=== PATIENT | male | born 1955 | race African-American/Black ===

== ENCOUNTER 2019-07-26 21:42 | Inpatient (IN) | payer OTHER ==
[~2019-07-26] VITALS: Ht 167.6 cm; Wt 78.5 kg
[2019-07-27] VITALS (7 sets, daily range): BP systolic 91–156; BP diastolic 70–94
[2019-07-27 00:10] LABS: BASOPHILS % 0.7 % (0.0-2.0); EOSINOPHILS % 0.5 % (0.0-5.0); HEMOGLOBIN. 14.1 g/dL (14.0-18.0); LYMPHOCYTES % 21.7 % (20.0-50.0); MEAN CORPUSCULAR HEMOGLOBIN 30.7 pg (28.0-32.0); MEAN CORPUSCULAR VOLUME 91.7 fL (80.0-94.0); MEAN PLATELET VOLUME 8.9 fl (7.4-10.4); MONOCYTES % 7.1 % (2.0-8.0); PLATELET 227 x1000/uL (130-400); RED BLOOD CELL COUNT 4.58 mill/uL (4.7-6.1)
[2019-07-27 00:13] LABS: CHLORIDE 101 mEq/L (98-107)
[2019-07-27 00:14] LABS: PROTHROMBIN TIME 10.7 sec (9.6-11.0)
[2019-07-27 00:17] LABS: CLARITY URINE CLEAR (CLEAR); COLOR URINE YELLOW (YELLOW); KETONES URINE NEGATIVE (NEGATIVE); LEUKOCYTE ESTERASE URINE NEGATIVE (NEGATIVE); NITRITE URINE NEGATIVE (NEGATIVE); OCCULT BLOOD URINE 1+ (NEGATIVE); PH URINE 5.5 (4.5-8.0); PROTEIN URINE TRACE (NEGATIVE); SPECIFIC GRAVITY URINE 1.023 (1.005-1.030); UROBILINOGEN URINE 0.2 E.U./dL (0.2-1.0)
[2019-07-27 00:21] LABS: ETHANOL BLOOD < 10 mg/dL
[2019-07-27 00:30] LABS: *AMPHETAMINES SCREEN URINE NEGATIVE (NEGATIVE); *BARBITURATES SCREEN URINE NEGATIVE (NEGATIVE); *BENZODIAZEPINES SCREEN URINE NEGATIVE (NEGATIVE); *COCAINE SCREEN URINE NEGATIVE (NEGATIVE); METHADONE URINE SCREEN NEGATIVE (NEGATIVE)
[2019-07-27 00:31] LABS: CANNABINOID URINE SCREEN NEGATIVE (NEGATIVE); OPIATES URINE SCREEN NEGATIVE (NEGATIVE); PHENCYCLIDINE URINE SCREEN NEGATIVE (NEGATIVE)
[2019-07-27] MEDS ORDERED: ASPIRIN 81MG TABLET PO ONE (00:45)
[2019-07-27] MEDS ORDERED: ENOXAPARIN 100MG/ML SYR SUBCUT ONE (00:45)
[2019-07-27 00:58] LABS: CREATINE KINASE 8561 IU/L (39-308)
[2019-07-27] MEDS ORDERED: CLONIDINE 0.1MG TABLET PO PRN (13:00)
[2019-07-27] MEDS ORDERED: ONDANSETRON HCL 4MG/2ML INJ IV PRN (13:00)
[2019-07-27] MEDS: METOPROLOL TARTRATE 25MG TABLET PO SCH ×2 (13:44→21:43)
[2019-07-27] MEDS: ACETAMINOPHEN 325MG TABLET PO PRN (13:45)
[2019-07-27] MEDS: ENOXAPARIN 80MG/0.8ML SYR SUBCUT SCH (13:50)
[2019-07-27] MEDS ORDERED: NITROGLYCERIN 0.2MG/HR PATCH TOP SCH (14:00)
[2019-07-27] MEDS ORDERED: DEXTROSE 50% WATER 50ML SYRINGE IV PRN (16:30)
[2019-07-27] MEDS: BLOOD SUGAR DIAGNOSTIC STRIP TEST SCH ×2 (17:05→21:46)
[2019-07-27] MEDS: INSULIN LISPRO 100 UNITS/ML SUBCUT SCH ×2 (17:25→21:00)
[2019-07-27] MEDS: AMLODIPINE 5MG TABLET PO SCH (21:00)
[2019-07-27] MEDS: ATORVASTATIN CALCIUM 40MG TABLET PO SCH (21:43)
[2019-07-28] VITALS (13 sets, daily range): BP systolic 98–143; BP diastolic 43–89
[2019-07-28] MEDS: ENOXAPARIN 80MG/0.8ML SYR SUBCUT SCH (01:47)
[2019-07-28 06:54] LABS: MEAN CORPUSCULAR HEMOGLOBIN 30.5 pg (28.0-32.0); MEAN PLATELET VOLUME 9.5 fl (7.4-10.4); PLATELET 225 x1000/uL (130-400); RED CELL DISTRIBUTION WIDTH 17.8 % (11.6-14.6)
[2019-07-28 06:57] LABS: CHLORIDE 101 mEq/L (98-107)
[2019-07-28 07:23] LABS: LDL CHOLESTEROL 83 mg/dL (5-100)
[2019-07-28 07:25] LABS: HDL CHOLESTEROL 54 mg/dL (40-59)
[2019-07-28] MEDS: BLOOD SUGAR DIAGNOSTIC STRIP TEST SCH ×4 (07:30→20:58)
[2019-07-28] MEDS: INSULIN LISPRO 100 UNITS/ML SUBCUT SCH ×4 (08:00→20:58)
[2019-07-28] MEDS: METOPROLOL TARTRATE 25MG TABLET PO SCH ×2 (09:53→20:52)
[2019-07-28] MEDS: AMLODIPINE 5MG TABLET PO SCH ×2 (09:53→20:52)
[2019-07-28] MEDS: ASPIRIN 81MG EC TABLET PO SCH (09:53)
[2019-07-28] MEDS: NITROGLYCERIN 0.2MG/HR PATCH TOP SCH (12:21)
[2019-07-28] MEDS ORDERED: CYAN-50 MT (15:28)
[2019-07-28] MEDS ORDERED: CLOP75TA33 MT (15:28)
[2019-07-28] MEDS ORDERED: CHOL400C8 MT (15:28)
[2019-07-28] MEDS ORDERED: GLIP5TAB12 MT (15:28)
[2019-07-28] MEDS ORDERED: ATOR-2 MT (15:28)
[2019-07-28] MEDS ORDERED: LISI-604 MT (15:28)
[2019-07-28] MEDS ORDERED: DIVA-75 MT (15:28)
[2019-07-28] MEDS ORDERED: METF-414 MT (15:28)
[2019-07-28] MEDS ORDERED: CHLO25TA2 MT (15:28)
[2019-07-28] MEDS ORDERED: DILT-26 MT (15:28)
[2019-07-28 20:28] LABS: PLATELET ESTIMATE NORMAL
[2019-07-28] MEDS: ATORVASTATIN CALCIUM 40MG TABLET PO SCH (20:52)
[2019-07-29] VITALS (13 sets, daily range): BP systolic 102–181; BP diastolic 70–97
[2019-07-29 06:15] LABS: CHLORIDE 101 mEq/L (98-107)
[2019-07-29] MEDS: BLOOD SUGAR DIAGNOSTIC STRIP TEST SCH ×4 (07:51→20:43)
[2019-07-29] MEDS: INSULIN LISPRO 100 UNITS/ML SUBCUT SCH ×4 (08:02→20:42)
[2019-07-29] MEDS: METOPROLOL TARTRATE 25MG TABLET PO SCH ×2 (09:17→20:44)
[2019-07-29] MEDS: AMLODIPINE 5MG TABLET PO SCH ×2 (09:17→20:44)
[2019-07-29] MEDS: ASPIRIN 81MG EC TABLET PO SCH (09:17)
[2019-07-29] MEDS: ENOXAPARIN 40MG/0.4ML SYR SUBCUT SCH (09:17)
[2019-07-29] MEDS: NITROGLYCERIN 0.2MG/HR PATCH TOP SCH (09:25)
[2019-07-29] MEDS: CLOPIDOGREL 75MG TABLET PO SCH (13:18)
[2019-07-29] MEDS: ATORVASTATIN CALCIUM 40MG TABLET PO SCH (20:43)
[2019-07-30] VITALS: BP 141/58
[2019-07-30 03:31] VITALS: BP 144/84
[2019-07-30 06:10] LABS: HEMATOCRIT. 33.3 % (42.0-52.0); HEMOGLOBIN. 11.3 g/dL (14.0-18.0); MEAN CORPUSCULAR VOLUME 88.7 fL (80.0-94.0); MEAN PLATELET VOLUME 9.7 fl (7.4-10.4); PLATELET 297 x1000/uL (130-400); RED BLOOD CELL COUNT 3.75 mill/uL (4.7-6.1); RED CELL DISTRIBUTION WIDTH 17.4 % (11.6-14.6)
[2019-07-30 08:00] VITALS: BP 139/76
[2019-07-30] MEDS: BLOOD SUGAR DIAGNOSTIC STRIP TEST SCH ×4 (08:11→21:00)
[2019-07-30 08:17] LABS: CHLORIDE 101 mEq/L (98-107)
[2019-07-30] MEDS: INSULIN LISPRO 100 UNITS/ML SUBCUT SCH ×4 (08:23→20:45)
[2019-07-30] MEDS: CLOPIDOGREL 75MG TABLET PO SCH (09:12)
[2019-07-30] MEDS: ASPIRIN 81MG EC TABLET PO SCH (09:12)
[2019-07-30] MEDS: AMLODIPINE 5MG TABLET PO SCH ×2 (09:12→20:39)
[2019-07-30] MEDS: METOPROLOL TARTRATE 25MG TABLET PO SCH ×2 (09:12→20:39)
[2019-07-30] MEDS: ENOXAPARIN 40MG/0.4ML SYR SUBCUT SCH (09:12)
[2019-07-30] MEDS: NITROGLYCERIN 0.2MG/HR PATCH TOP SCH (10:07)
[2019-07-30 12:00] VITALS: BP 137/84
[2019-07-30 12:09] LABS: PLATELET ESTIMATE NORMAL
[2019-07-30 16:00] VITALS: BP 135/86
[2019-07-30 20:00] VITALS: BP 122/78
[2019-07-31] VITALS: BP 100/69
[2019-07-31 06:00] VITALS: BP 145/84
[2019-07-31] MEDS: BLOOD SUGAR DIAGNOSTIC STRIP TEST SCH ×4 (07:30→21:00)
[2019-07-31 07:47] LABS: HEMATOCRIT. 30.6 % (42.0-52.0); HEMOGLOBIN. 10.7 g/dL (14.0-18.0); MEAN CORPUSCULAR HEMOGLOBIN 30.6 pg (28.0-32.0); MEAN CORPUSCULAR VOLUME 87.9 fL (80.0-94.0); MEAN PLATELET VOLUME 9.3 fl (7.4-10.4); PLATELET 327 x1000/uL (130-400); RED BLOOD CELL COUNT 3.49 mill/uL (4.7-6.1); RED CELL DISTRIBUTION WIDTH 17.8 % (11.6-14.6)
[2019-07-31 08:00] VITALS: BP 143/74
[2019-07-31] MEDS: INSULIN LISPRO 100 UNITS/ML SUBCUT SCH ×4 (08:00→21:02)
[2019-07-31 08:12] LABS: CHLORIDE 102 mEq/L (98-107)
[2019-07-31 08:34] LABS: PLATELET ESTIMATE NORMAL
[2019-07-31] MEDS: CLOPIDOGREL 75MG TABLET PO SCH (09:05)
[2019-07-31] MEDS: METOPROLOL TARTRATE 25MG TABLET PO SCH ×3 (09:05→20:48)
[2019-07-31] MEDS: AMLODIPINE 5MG TABLET PO SCH ×2 (09:05→20:48)
[2019-07-31] MEDS: ASPIRIN 81MG EC TABLET PO SCH (09:05)
[2019-07-31] MEDS: ENOXAPARIN 40MG/0.4ML SYR SUBCUT SCH (09:06)
[2019-07-31] MEDS: NITROGLYCERIN 0.2MG/HR PATCH TOP SCH (09:15)
[2019-07-31 12:00] VITALS: BP 145/98
[2019-07-31 20:00] VITALS: BP 136/73
[2019-07-31] MEDS: ATORVASTATIN CALCIUM 40MG TABLET PO SCH (21:07)
[2019-08-01] VITALS: BP 116/68
[2019-08-01 04:00] VITALS: BP 147/87
[2019-08-01 06:00] VITALS: BP 137/94
[2019-08-01] MEDS: INSULIN LISPRO 100 UNITS/ML SUBCUT SCH ×4 (07:54→21:22)
[2019-08-01] MEDS: BLOOD SUGAR DIAGNOSTIC STRIP TEST SCH ×4 (07:54→21:24)
[2019-08-01 08:00] VITALS: BP 135/85
[2019-08-01] MEDS: ENOXAPARIN 40MG/0.4ML SYR SUBCUT SCH (10:32)
[2019-08-01] MEDS: NITROGLYCERIN 0.2MG/HR PATCH TOP SCH (10:33)
[2019-08-01] MEDS: CLOPIDOGREL 75MG TABLET PO SCH (10:33)
[2019-08-01] MEDS: ASPIRIN 81MG EC TABLET PO SCH (10:33)
[2019-08-01] MEDS: METOPROLOL TARTRATE 25MG TABLET PO SCH ×2 (10:33→21:21)
[2019-08-01] MEDS: AMLODIPINE 5MG TABLET PO SCH ×2 (10:34→21:21)
[2019-08-01 20:00] VITALS: BP 127/64
[2019-08-01] MEDS: ATORVASTATIN CALCIUM 40MG TABLET PO SCH (21:21)
[2019-08-01 22:00] VITALS: BP 120/78
[2019-08-02 02:00] VITALS: BP 126/76
[2019-08-02 04:00] VITALS: BP 123/74
[2019-08-02 05:30] VITALS: BP 139/83
[2019-08-02] MEDS: BLOOD SUGAR DIAGNOSTIC STRIP TEST SCH ×4 (07:30→21:37)
[2019-08-02] MEDS: INSULIN LISPRO 100 UNITS/ML SUBCUT SCH ×4 (08:00→21:01)
[2019-08-02] MEDS: AMLODIPINE 5MG TABLET PO SCH ×2 (09:51→21:02)
[2019-08-02] MEDS: METOPROLOL TARTRATE 25MG TABLET PO SCH ×2 (09:52→21:02)
[2019-08-02] MEDS: ASPIRIN 81MG EC TABLET PO SCH (09:52)
[2019-08-02] MEDS: ENOXAPARIN 40MG/0.4ML SYR SUBCUT SCH (09:53)
[2019-08-02] MEDS: CLOPIDOGREL 75MG TABLET PO SCH (09:53)
[2019-08-02] MEDS: NITROGLYCERIN 0.2MG/HR PATCH TOP SCH (09:54)
[2019-08-02 10:11] VITALS: BP 145/74
[2019-08-02 20:00] VITALS: BP 127/77
[2019-08-02] MEDS: ATORVASTATIN CALCIUM 40MG TABLET PO SCH (21:02)
[2019-08-03] VITALS: BP 132/68
[2019-08-03 04:00] VITALS: BP 114/60
[2019-08-03 06:41] LABS: HEMATOCRIT. 30.4 % (42.0-52.0); HEMOGLOBIN. 10.6 g/dL (14.0-18.0); MEAN CORPUSCULAR HEMOGLOBIN 30.7 pg (28.0-32.0); MEAN CORPUSCULAR VOLUME 88.2 fL (80.0-94.0); MEAN PLATELET VOLUME 9.3 fl (7.4-10.4); PLATELET 423 x1000/uL (130-400); RED BLOOD CELL COUNT 3.45 mill/uL (4.7-6.1); RED CELL DISTRIBUTION WIDTH 17.5 % (11.6-14.6)
[2019-08-03 07:21] LABS: CHLORIDE 101 mEq/L (98-107)
[2019-08-03] MEDS: BLOOD SUGAR DIAGNOSTIC STRIP TEST SCH ×4 (07:30→21:56)
[2019-08-03 08:00] VITALS: BP 143/76
[2019-08-03] MEDS: ENOXAPARIN 40MG/0.4ML SYR SUBCUT SCH (08:52)
[2019-08-03] MEDS: NITROGLYCERIN 0.2MG/HR PATCH TOP SCH (08:52)
[2019-08-03] MEDS: METOPROLOL TARTRATE 25MG TABLET PO SCH ×2 (08:53→21:56)
[2019-08-03] MEDS: ASPIRIN 81MG EC TABLET PO SCH (08:53)
[2019-08-03] MEDS: AMLODIPINE 5MG TABLET PO SCH ×2 (08:53→21:56)
[2019-08-03] MEDS: CLOPIDOGREL 75MG TABLET PO SCH (08:53)
[2019-08-03] MEDS: ACETAMINOPHEN 325MG TABLET PO PRN ×2 (08:54→17:59)
[2019-08-03] MEDS: INSULIN LISPRO 100 UNITS/ML SUBCUT SCH ×4 (08:55→22:07)
[2019-08-03 12:00] VITALS: BP 119/48
[2019-08-03 13:27] LABS: PLATELET ESTIMATE INCREASED
[2019-08-03 16:00] VITALS: BP 121/69
[2019-08-03] MEDS ORDERED: LACTULOSE 20G/30ML UDC PO PRN (16:30)
[2019-08-03 20:00] VITALS: BP 132/75
[2019-08-03] MEDS: ATORVASTATIN CALCIUM 40MG TABLET PO SCH (21:55)
[2019-08-04] VITALS (8 sets, daily range): BP systolic 107–155; BP diastolic 56–83
[2019-08-04] MEDS: BLOOD SUGAR DIAGNOSTIC STRIP TEST SCH ×4 (07:30→20:51)
[2019-08-04] MEDS: INSULIN LISPRO 100 UNITS/ML SUBCUT SCH ×4 (08:00→20:16)
[2019-08-04] MEDS ORDERED: BISACODYL 10MG SUPP PR PRN (10:00)
[2019-08-04] MEDS: ENOXAPARIN 40MG/0.4ML SYR SUBCUT SCH (12:23)
[2019-08-04] MEDS: METOPROLOL TARTRATE 25MG TABLET PO SCH ×2 (12:27→20:15)
[2019-08-04] MEDS: AMLODIPINE 5MG TABLET PO SCH ×2 (12:27→20:15)
[2019-08-04] MEDS: CLOPIDOGREL 75MG TABLET PO SCH (12:27)
[2019-08-04] MEDS: ASPIRIN 81MG EC TABLET PO SCH (12:27)
[2019-08-04] MEDS: DOCUSATE SODIUM 100MG CAPSULE PO SCH ×2 (12:28→16:47)
[2019-08-04] MEDS: NITROGLYCERIN 0.2MG/HR PATCH TOP SCH (12:29)
[2019-08-04] MEDS: ATORVASTATIN CALCIUM 40MG TABLET PO SCH (20:15)
[2019-08-05] VITALS: BP 151/86
[2019-08-05 04:00] VITALS: BP 151/85
[2019-08-05] MEDS: BLOOD SUGAR DIAGNOSTIC STRIP TEST SCH ×3 (07:38→16:58)
[2019-08-05 08:00] VITALS: BP 149/86
[2019-08-05] MEDS: INSULIN LISPRO 100 UNITS/ML SUBCUT SCH ×3 (08:00→18:37)
[2019-08-05] MEDS: METOPROLOL TARTRATE 25MG TABLET PO SCH (08:06)
[2019-08-05] MEDS: ASPIRIN 81MG EC TABLET PO SCH (08:06)
[2019-08-05] MEDS: AMLODIPINE 5MG TABLET PO SCH (08:06)
[2019-08-05] MEDS: NITROGLYCERIN 0.2MG/HR PATCH TOP SCH (08:07)
[2019-08-05] MEDS: ACETAMINOPHEN 325MG TABLET PO PRN (08:07)
[2019-08-05] MEDS: CLOPIDOGREL 75MG TABLET PO SCH (08:07)
[2019-08-05] MEDS: ENOXAPARIN 40MG/0.4ML SYR SUBCUT SCH (08:07)
[2019-08-05] MEDS: DOCUSATE SODIUM 100MG CAPSULE PO SCH ×2 (09:00→16:00)
[2019-08-05 12:00] VITALS: BP 110/62
[2019-08-05 13:06] VITALS: BP 110/62
[2019-08-05 16:01] VITALS: BP 120/68
== END 2019-08-05 21:10 | DRG 64 ==
LOC: ER 21:42 → 5EST 07-27 01:49 → EDBEDREQ 07-27 01:52 → EDBEDREQDT 07-27 01:52 → EDBEDREQTM 07-27 01:52 → EDBEDREQSVC 07-27 01:52 → ENRESERV 07-27 07:44 → 5EST 07-27 19:07
PROVIDERS: ADMIT Hospitalist; ATTEND Hospitalist
DX: I63.9 Cerebral infarction, unspecified (principal); I21.4 Non-ST elevation (NSTEMI) myocardial infarction; G40.909 Epilepsy, unspecified, not intractable, without status epilepticus; E11.9 Type 2 diabetes mellitus without complications; E78.5 Hyperlipidemia, unspecified; G93.89 Other specified disorders of brain; I11.9 Hypertensive heart disease without heart failure; I25.10 Atherosclerotic heart disease of native coronary artery without angina pectoris; K59.00 Constipation, unspecified; Z79.899 Other long term (current) drug therapy; Z87.891 Personal history of nicotine dependence
CPT/HCPCS: 36415; 70544; 70551; 71045; 80048; 80053; 80061; 80305; 80320; 81003; 82550; 82962; 83036; 83735; 84484; 85025; 93005; 93306; 93880; 93970; 96372; 97110; 97162; 97166; 97530; 97535; 99291; J1650; J1815; J2405; G0480